=== PATIENT | male | born 1950 | race Caucasian/White ===

== ENCOUNTER 2019-01-28 02:10 | Emergency (ER) | payer OTHER, MEDICARE ==
[2019-01-28] MEDS ORDERED: HYDROmorphone 0.5 MG/0.5 ML Syringe IVPUSH ONE ×2 (02:41→03:13)
[2019-01-28] MEDS ORDERED: Ondansetron 4 MG/2 ML SDV IVPUSH ONE (02:41)
--- NOTE | 2019-01-28 02:41 | EDM.PDOC ---
ED HPI GENERAL MEDICAL PROBLEM - General Chief Complaint: Gastrointestinal Problem Stated Complaint: abdominal pain for 5 days Time Seen by Provider: 01/28/19 02:29 Source of Information: Reports: Patient History Limitations: Reports: No Limitations - History of Present Illness INITIAL COMMENTS - FREE TEXT/NARRATIVE: This is a 68-year-old male. Tonight around 8 PM he started having bloating of his stomach and crampy sharp pain this seems to radiate around his colon in an upside down U-shaped. He had a normal bowel movement about an hour and a half ago. The pain is gotten more intense and he can't burp or defecate or have flatulence at this time. He had a similar episode like this last Wednesday this seemed to last all night and finally eased up in the morning and he slept all day Wednesday. He's been having normal bowel movements and eating normally with no difficulty since that time. He has no history of gallbladder disease. He complains of feeling distended and full. He says it feels like he just can't get anything to move. No fever no chills no cough no congestion no other acute symptoms. He's had no history of bowel surgeries or bowel problems. Abdominal Pain Score (Numeric/FACES): 8 - Related Data Allergies Allergy/AdvReac Type Severity Reaction Status Date / Time No Known Allergies Allergy Verified 01/28/19 02:18 Home Meds: Home Meds Acetaminophen/oxyCODONE [Percocet 325-5 MG] 1 each PO Q4H PRN #10 tab 01/28/19 [ Rx] Aspirin 81 mg PO DAILY 01/28/19 [History] Lisinopril 20 mg PO DAILY 01/28/19 [History] Ondansetron HCl [Zofran] 4 mg PO Q6H PRN #10 tablet 01/28/19 [Rx] atorvaSTATin [Lipitor] 40 mg PO DAILY 01/28/19 [History] Past Medical History HEENT History: Reports: Other (See Below) Other HEENT History: glasses Cardiovascular History: Reports: High Cholesterol, [place] Musculoskeletal History: Reports: Other (See Below) Other Musculoskeletal History: r femure repair Social & Family History - Tobacco Use Smoking Status *Q: Current Every Day Smoker Years of Tobacco use: 40 Packs/Tins Daily: 1 - Caffeine Use Caffeine Use: Reports: Coffee - Recreational Drug Use Recreational Drug Use: No ED ROS GENERAL - Review of Systems Review Of Systems: See Below Constitutional: Denies: Fever, Chills HEENT: Reports: No Symptoms Respiratory: Denies: Shortness of Breath, Cough Cardiovascular: Denies: Chest Pain Endocrine: Reports: No Symptoms GI/Abdominal: Reports: Abdominal Pain, Distension. Denies: Diarrhea, Flatus, Nausea, Vomiting : Reports: No Symptoms Musculoskeletal: Reports: No Symptoms Skin: Reports: No Symptoms Neurological: Reports: No Symptoms Psychiatric: Reports: No Symptoms Hematologic/Lymphatic: Reports: No Symptoms ED EXAM, GI/ABD - Physical Exam Exam: See Below Exam Limited By: No Limitations General Appearance: Alert, WD/WN, Mild Distress Eyes: Bilateral: Normal Appearance Ears: Normal External Exam Nose: Normal Inspection Throat/Mouth: Normal Inspection, Normal Lips, Normal Voice, No Airway Compromise Head: Normocephalic Neck: Supple Respiratory/Chest: No Respiratory Distress, Lungs Clear, Normal Breath Sounds Cardiovascular: Regular Rate, Rhythm, No Murmur GI/Abdominal Exam: Distended. No: Normal Bowel Sounds (Bowel sounds are decreased and occasionally high pitched, he appears to be distended with tenderness all over his abdomen, there is no rebound noted but his abdomen is tense) Back Exam: Normal Inspection, Full Range of Motion Extremities: Normal Inspection, Normal Range of Motion Neurological: Alert, Oriented Psychiatric: Normal Affect, Normal Mood Skin Exam: Warm, Dry Course - Vital Signs Last Recorded V/S: Last Vital Signs Temp 96.8 F 01/28/19 02:17 Pulse 62 01/28/19 02:17 Resp 17 01/28/19 02:17 BP 171/87 H 01/28/19 02:17 Pulse Ox 100 01/28/19 02:17 - Orders/Labs/Meds Orders: Active Orders 24 hr Category Date Time Status Abdomen 2V AP Flat Upright [CR] Stat Exams 01/28/19 02:41 Taken Abdomen Pelvis w Cont [CT] Stat Exams 01/28/19 03:05 Taken Sodium Chloride 0.9% [Normal Saline] 1,000 ml Med 01/28/19 02:45 Active IV ASDIRECTED Medication Orders Sodium Chloride (Normal Saline) 1,000 mls @ 500 mls/hr IV ASDIRECTED ANNE MARIE Last Admin: 01/28/19 05:03 Dose: 999 mls/hr Infusion: 01/28/19 04:55 Dose: 500 mls/hr Admin: 01/28/19 02:55 Dose: 500 mls/hr Labs: Laboratory Tests 01/28/19 01/28/19 Range/Units 02:50 02:50 WBC 10.83 H (4.23-9.07) K/mm3 RBC 5.25 (4.63-6.08) M/mm3 Hgb 15.7 (13.7-17.5) gm/dl Hct 47.0 (40.1-51.0) % MCV 89.5 (79.0-92.2) fl MCH 29.9 (25.7-32.2) pg MCHC 33.4 (32.2-35.5) g/dl RDW Std Deviation 41.1 (35.1-43.9) fL Plt Count 254 (163-337) K/mm3 MPV 9.8 (9.4-12.3) fl Neut % (Auto) 74.7 H (34.0-67.9) % Lymph % (Auto) 14.0 L (21.8-53.1) % [place] % (Auto) 9.6 (5.3-12.2) % Eos % (Auto) 0.9 (0.8-7.0) Baso % (Auto) 0.5 (0.1-1.2) % Neut # (Auto) 8.09 H (1.78-5.38) K/mm3 Lymph # (Auto) 1.52 (1.32-3.57) K/mm3 [place] # (Auto) 1.04 H (0.30-0.82) K/mm3 Eos # (Auto) 0.10 (0.04-0.54) K/mm3 Baso # (Auto) 0.05 (0.01-0.08) K/mm3 Manual Slide Review Abnormal smear Sodium 136 (136-145) mEq/L Potassium 4.7 (3.5-5.1) mEq/L Chloride 104 (98-107) mEq/L Carbon Dioxide 21 (21-32) mEq/L Anion Gap 15.7 H (5-15) BUN 20 H (7-18) mg/dL Creatinine 1.1 (0.7-1.3) mg/dL Est Cr Clr Drug Dosing 60.93 mL/min Estimated GFR (MDRD) > 60 (>60) mL/min BUN/Creatinine Ratio 18.2 H (14-18) Glucose 186 H (80-115) mg/dL Calcium 8.8 (8.5-10.1) mg/dL Total Bilirubin 0.5 (0.2-1.0) mg/dL AST 23 (15-37) U/L ALT 32 (16-63) U/L Alkaline Phosphatase 102 (46-116) U/L Total Protein 7.1 (6.4-8.2) g/dl Albumin 3.6 (3.4-5.0) g/dl Globulin 3.5 gm/dL Albumin/Globulin Ratio 1.0 (1-2) Lipase 1031 H (73-393) U/L Meds: Medications Generic Name Dose Route Start Last Admin Trade Name Freq PRN Reason Stop Dose Admin Sodium Chloride 1,000 mls @ 500 mls/hr 01/28/19 02:45 01/28/19 05:03 Normal Saline IV 999 mls/hr ASDIRECTED ANNE MARIE Administration Discontinued Medications Generic Name Dose Route Start Last Admin Trade Name Freq PRN Reason Stop Dose Admin Hydromorphone HCl 0.5 mg 01/28/19 02:41 01/28/19 02:55 Dilaudid IVPUSH 01/28/19 02:42 0.5 mg ONETIME ONE Administration Hydromorphone HCl 0.5 mg 01/28/19 03:13 01/28/19 03:17 Dilaudid IVPUSH 01/28/19 03:14 0.5 mg ONETIME ONE Administration Iopamidol 100 ml 01/28/19 04:13 01/28/19 04:15 Isovue-300 (61%) IVPUSH 01/28/19 04:14 100 ml ONETIME ONE Administration Ondansetron HCl 4 mg 01/28/19 02:41 01/28/19 02:55 Zofran IVPUSH 01/28/19 02:42 4 mg ONETIME ONE Administration - Radiology Interpretation Free Text/Narrative:: LAD and upright shows a collection of stool and gas in the right lower quadrant but the rest of the large bowel does not appear to have significant stool. I cannot visualize the small bowel. There does not appear to be any significant air-fluid levels. CT scan showed a 1.8 cm stone in the gallbladder with some mildly edematous gallbladder wall but there was no other acute findings. - Re-Assessments/Exams Free Text/Narrative Re-Assessment/Exam: 01/28/19 05:11 The patient is feeling much better right now and he is getting his fluids due to the IV contrast and his mild dehydration. Once he gets his 2 L we will discharge him home. He is to follow-up with the surgeon color control operator on Wednesday by calling the office and arrange an office visit. 01/28/19 05:57 The patient is doing much better. He has no pain and he feels like he can go home. Departure - Departure Time of Disposition: 05:12 Disposition: Home, Self-Care 01 Condition: Fair Clinical Impression: Cholelithiasis without cholecystitis Cholelithiasis without obstruction Qualifiers: Cholelithiasis location: gallbladder Cholecystitis presence: without cholecystitis Qualified Code(s): K80.20 - Calculus of gallbladder without cholecystitis without obstruction - Discharge Information *PRESCRIPTION DRUG MONITORING PROGRAM REVIEWED*: No *COPY OF PRESCRIPTION DRUG MONITORING REPORT IN PATIENT ASHOK: No Prescriptions: Acetaminophen/oxyCODONE [Percocet 325-5 MG] 1 each PO Q4H PRN #10 tab PRN Reason: Pain Ondansetron HCl [Zofran] 4 mg PO Q6H PRN #10 tablet PRN Reason: Nausea Instructions: Cholelithiasis, Gallbladder Eating Plan Referrals: Ezequiel Dove MD [Physician] - Forms: ED Department Discharge Additional Instructions: Avoid all oily, greasy or fried foods, stick to liquids for the next 24 hours, call Dr. Dove on Wednesday and arrange for an office visit for evaluation of your gallbladder and possible removal of your gallbladder, if there is marked worsening of your symptoms return to the ER, if you develop a fever greater than 101.5 return to the ER, take the medication for pain and nausea as needed - My Orders Last 24 Hours: My Active Orders 01/28/19 02:41 Abdomen 2V AP Flat Upright [CR] Stat 01/28/19 02:45 Sodium Chloride 0.9% [Normal Saline] 1,000 ml IV ASDIRECTED 01/28/19 03:05 Abdomen Pelvis w Cont [CT] Stat - Assessment/Plan Last 24 Hours: My Active Orders 01/28/19 02:41 Abdomen 2V AP Flat Upright [CR] Stat 01/28/19 02:45 Sodium Chloride 0.9% [Normal Saline] 1,000 ml IV ASDIRECTED 01/28/19 03:05 Abdomen Pelvis w Cont [CT] Stat
[2019-01-28] MEDS: Sodium Chloride 0.9% 1,000 ML IV SCH ×2 (02:55→05:03)
[2019-01-28] MEDS ORDERED: Iopamidol 612 MG/ML 100 ML Bottle IVPUSH ONE (04:13)
--- NOTE | 2019-01-28 12:52 | CR ---
Abdomen: Supine and upright views of the abdomen were obtained. Comparison: No prior abdominal x-ray. Plate and screws are partially visualized within the femur. Moderate joint space narrowing is seen within the superior right hip joint. Joint space within the left hip is preserved. Bowel gas pattern is normal. No free air is seen. Calcifications are noted within the pelvis which are felt compatible with slight arterial calcification and phleboliths. Impression: 1. Findings which are nonacute as noted above. 2. Two-view abdominal study is otherwise unremarkable. Diagnostic code #2
--- NOTE | 2019-01-28 12:52 | CT ---
CT abdomen and pelvis Technique: Multiple axial sections were obtained from above the dome of the diaphragm inferiorly through the pubic symphysis. Intravenous and oral contrast was utilized. Delayed images were also obtained through the bladder. Comparison: Prior abdominal x-ray performed earlier on the same day (2:49 AM). Findings: Visualized lung bases show nothing acute. Liver contains no focal parenchymal abnormality. Contrast is noted within the distal esophagus compatible with reflux. Spleen appears within normal limits. Adrenal glands show no nodule. Pancreas is within normal limits. Single large calcified gallstone is noted within the gallbladder. This stone measures approximately 1.6 cm in greatest dimension. There is slight gallbladder wall thickening and possible mild edema present. No biliary duct dilatation is seen on this exam. Kidneys show symmetric contrast enhancement. No hydronephrosis or mass is seen within either kidney. Aorta shows no aneurysm. No retroperitoneal adenopathy is seen. Mild atherosclerotic change noted within the aortoiliac vessels. Very slight ectasia is noted within the distal aorta. No mesenteric abnormalities are seen. Appendix is seen which is normal in size. Diverticuli are seen within the sigmoid colon and descending colon without diverticulitis. No free fluid or inflammatory change is seen. Delayed images show contrast within the distal ureters and within the bladder. Bone window settings were reviewed which appear within normal limits for the patient's age. Impression: 1. Single large gallstone within the gallbladder. Slightly abnormal gallbladder wall. Gallbladder ultrasound could be obtained to further evaluate. 2. Gastroesophageal reflux of contrast. 3. Diverticuli without diverticulitis. 4. Other findings which are believed to be incidental. Diagnostic code #3 Agree with preliminary report issued by [employer], preliminary report finalized on 01/28/19, 5:45 AM Central Time
== END 2019-01-28 06:09 | disposition home or self-care (01) ==
LOC: JD.ED 02:10
DX: K80.20 Calculus of gallbladder without cholecystitis without obstruction (principal); I25.2 Old myocardial infarction; E78.00 Pure hypercholesterolemia, unspecified; F17.210 Nicotine dependence, cigarettes, uncomplicated; Z79.82 Long term (current) use of aspirin; Z79.899 Other long term (current) drug therapy
CPT/HCPCS: 36415; 74019; 74177; 80053; 83690; 85025; 96361; 96374; 96375; 99284; J1170; J2405; J7040; Q9967

== ENCOUNTER 2019-02-06 08:38 | Day surgery (SDC) | payer OTHER, MEDICARE ==
[~2019-02-06 08:38] MED LIST: Lactated Ringers 1,000 ML IV SCH; Lidocaine 1%/Sod Bicarbonate in NS 8.4% 1 ML Syringe IDERM PRN; Sodium Chloride 0.9% 10 ML Syringe FLUSH PRN
[2019-02-06] MEDS ORDERED: Iopamidol 612 MG/ML 50 ML SDV ONE (08:56)
[2019-02-06] MEDS ORDERED: Lidocaine 1% 30 ML SDV ONE (08:57)
[2019-02-06] MEDS ORDERED: Sodium Chloride 0.9% 50 ML SDV ONE (08:57)
[2019-02-06] MEDS ORDERED: ceFAZolin 2 GM in Premix Bag 1 BAG IV ONE (09:20)
--- NOTE | 2019-02-06 09:32 | PCM.PREANE ---
Preanesthetic Assessment - Anesthesia/Transfusion/Family Hx Anesthesia History: Prior Anesthesia Without Reaction Family History of Anesthesia Reaction: No - Review of Systems General: No Symptoms Pulmonary: No Symptoms (Vapes nicotine free up to 10 times per day. ) Cardiovascular: No Symptoms (History of cardiac stents x2 last one in 2015. Follows with [facility] last saw in October. EKG and ECHO completed and reviewed. ) Gastrointestinal: No Symptoms Neurological: No Symptoms Other: Reports: Neck Pain (Sore neck full ROM. "Chiropractor adjusted and now it 's sore".) - Physical Assessment NPO Status Date: 02/05/19 NPO Status Time: 23:00 Vital Signs: 97.4 F 16 62 118/84 95% ASA Class: 2 Mental Status: Alert & Oriented x3 Airway Class: Mallampati = 1 Dentition: Reports: Partial (Upper x 2 and Lower x 1. Removed. ) Thyro-Mental Finger Breadths: 2 Mouth Opening Finger Breadths: 3 ROM/Head Extension: Full Lungs: Clear to Auscultation, Normal Respiratory Effort Cardiovascular: Regular Rhythm, Bradycardia - Allergies Allergies/Adverse Reactions: Allergies Allergy/AdvReac Type Severity Reaction Status Date / Time No Known Allergies Allergy Verified 02/03/19 11:50 - Anesthesia Plan Beta Tya: Carvedilol Med Last Dose Date: 02/06/19 Med Last Dose Time: 08:00 - Acknowledgements Anesthesia Type Planned: General Anesthesia Pt an Appropriate Candidate for the Planned Anesthesia: Yes Alternatives and Risks of Anesthesia Discussed w Pt/Guardian: Yes Pt/Guardian Understands and Agrees with Anesthesia Plan: Yes PreAnesthesia Questionnaire HEENT History: Reports: Other (See Below) Other HEENT History: glasses, partials, hearing aide Cardiovascular History: Reports: CAD, High Cholesterol, [place], Stents Respiratory History: Reports: None Gastrointestinal History: Reports: None Genitourinary History: Reports: None 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 Musculoskeletal History: Reports: Other (See Below) Other Musculoskeletal History: r femure repair Neurological History: Reports: None Psychiatric History: Reports: None Endocrine/Metabolic History: Reports: None Hematologic History: Reports: None Immunologic History: Reports: None Oncologic (Cancer) History: Reports: None Dermatologic History: Reports: None - Past Surgical History Head Surgeries/Procedures: Reports: None HEENT Surgical History: Reports: Naso-Sinus Surgery Cardiovascular Surgical History: Reports: None Respiratory Surgical History: Reports: None GI Surgical History: Reports: None Female Surgical History: Reports: None Male Surgical History: Reports: None Endocrine Surgical History: Reports: None Neurological Surgical History: Reports: None Musculoskeletal Surgical History: Reports: Other (See Below) Other Musculoskeletal Surgeries/Procedures:: right femur fracture with surgery Oncologic Surgical History: Reports: None Dermatological Surgical History: Reports: None - SUBSTANCE USE Smoking Status *Q: Former Smoker Recreational Drug Use History: No - HOME MEDS Home Medications: Home Meds Acetaminophen/oxyCODONE [Percocet 325-5 MG] 1 each PO Q4H PRN #10 tab 01/28/19 [ Rx] Aspirin 81 mg PO DAILY 01/28/19 [History] Ondansetron HCl [Zofran] 4 mg PO Q6H PRN #10 tablet 01/28/19 [Rx] atorvaSTATin [Lipitor] 40 mg PO DAILY 01/28/19 [History] Carvedilol [Coreg] 3.125 mg PO BID 02/03/19 [History] Lisinopril 5 mg PO DAILY 02/03/19 [History] - CURRENT (IN HOUSE) MEDS Current Meds: Current Medications Lactated Ringer's (Ringers, Lactated) 1,000 mls @ 125 mls/hr IV ASDIRECTED ANNE MARIE Stop: 02/06/19 23:00 Cefazolin Sodium/Dextrose 2 gm (/ Premix) 50 mls @ 100 mls/hr IV ONETIME ONE Stop: 02/06/19 09:49 Lidocaine/Sodium Bicarbonate (Buffered Lidocaine 1% In Ns 8.4%) 0.25 ml IDERM ONETIME PRN PRN Reason: Prior to IV Start Stop: 02/06/19 18:00 Sodium Chloride (Saline Flush) 10 ml FLUSH ASDIRECTED PRN PRN Reason: Keep Vein Open Stop: 02/06/19 18:00 Discontinued Medications Iopamidol (Isovue-300 (61%)) Confirm Administered Dose 50 ml .ROUTE .STK-MED ONE Stop: 02/06/19 08:57 Lidocaine HCl (Xylocaine-Mpf 1%) Confirm Administered Dose 30 ml .ROUTE .STK- MED ONE Stop: 02/06/19 08:58 Sodium Chloride (Normal Saline) Confirm Administered Dose 100 ml .ROUTE .STK- MED ONE Stop: 02/06/19 08:58
[2019-02-06] MEDS ORDERED: Rocuronium 50 MG/5 ML Vial ONE (09:34)
[2019-02-06] MEDS ORDERED: Propofol 200 MG/20 ML SDV ONE (09:35)
[2019-02-06] MEDS ORDERED: Midazolam 1 MG/ML 2 ML SDV ONE (09:35)
[2019-02-06] MEDS ORDERED: fentaNYL 250 MCG/5 ML SDV ONE (09:36)
[2019-02-06] MEDS ORDERED: Succinylcholine/Normal Saline 100 MG/5 ML Syringe ONE (09:38)
[2019-02-06] MEDS ORDERED: ceFAZolin 1 GM Vial ONE (09:38)
[2019-02-06] MEDS ORDERED: Phenylephrine/Normal Saline 100 MCG/ML 10 ML Syringe ONE (10:17)
[2019-02-06] MEDS ORDERED: Ondansetron 4 MG/2 ML SDV ONE (10:17)
[2019-02-06] MEDS ORDERED: HYDROmorphone 0.5 MG/0.5 ML Syringe IVPUSH PRN (10:24)
[2019-02-06] MEDS ORDERED: Lactated Ringers 1,000 ML ONE (10:56)
[2019-02-06] MEDS ORDERED: fentaNYL 100 MCG/2 ML SDV IVPUSH PRN (12:00)
--- NOTE | 2019-02-06 12:07 | CR ---
Operative cholangiogram: Multiple fluoroscopic spot views were obtained during operative cholangiogram exam. Findings: There is opacification of the CHD and CBD as well as proximal intrahepatic ducts. Contrast is noted within the duodenum. No filling defects are seen to indicate retained stone. Impression: 1. No abnormality is seen on operative cholangiogram exam. Diagnostic code #1
[2019-02-06] MEDS ORDERED: Ketorolac 15 MG/ML SDV ONE (12:08)
[2019-02-06] MEDS ORDERED: Neostigmine Methylsulfate 1 MG/ML 5 ML Syringe ONE (12:20)
--- NOTE | 2019-02-06 12:36 | PCM.POSTAN ---
POST ANESTHESIA ASSESSMENT - MENTAL STATUS Mental Status: Alert, Oriented - VITAL SIGNS Vital Signs: Last Vital Signs Temp 97.3 F 02/06/19 08:45 Pulse 62 02/06/19 08:45 Resp 16 02/06/19 08:45 BP 118/84 02/06/19 08:45 Pulse Ox 95 02/06/19 08:45 1224 130/69, 84, 15, 96% , 97.6 F - RESPIRATORY Respiratory Status: Respiratory Rate WNL, Airway Patent, O2 Saturation Stable, Supplemental Oxygen - CARDIOVASCULAR CV Status: Pulse Rate WNL, Blood Pressure Stable - GASTROINTESTINAL GI Status: No Symptoms - PAIN Pain Score: 0 - POST OP HYDRATION Hydration Status: Adequate & Stable
[2019-02-06] MEDS ORDERED: Acetaminophen/HYDROcodone 325-5 MG Tab PO ONE (13:10)
--- NOTE | 2019-02-06 14:11 | OR ---
DATE OF OPERATION: 02/06/2019 SURGEON: Ezequiel Dove MD PREOPERATIVE DIAGNOSIS: 1. Biliary colic. 2. Gallstone pancreatitis. POSTOPERATIVE DIAGNOSIS: 1. Acute on chronic cholecystitis. 2. Cholelithiasis. 3. Normal intraoperative cholangiogram. OPERATION PERFORMED: 1. Laparoscopic cholecystectomy. 2. Intraoperative cholangiogram. 3. Interpretation of intraoperative cholangiogram images. ANESTHESIA: General endotracheal. ESTIMATED BLOOD LOSS: 10 mL. FLUIDS: 1500 mL. FINDINGS: Normal cholangiogram and thickened gallbladder with acute and chronic inflammation. COMPLICATIONS: None. INDICATIONS AND CONSENT: Mr. Benson is a 68-year-old male with past CO and stents, most recently in 2016. The patient started having right upper quadrant pain about 2-3 weeks ago. The pain was located in the right side causing some bloating and some nausea, but no vomiting. The patient was evaluated in the emergency department after another acute episode and found to have thickened gallbladder with stones. At that time, his lipase was also 1000. The patient was discharged home and followed up in my clinic. I talked to the patient, evaluated him, and diagnosed him with biliary colic with gallstone pancreatitis. I recommended we proceed with laparoscopic cholecystectomy with intraoperative cholangiogram given the episode of pancreatitis. The patient agreed to proceed with the procedure. We discussed the risks, benefits, and alternatives. Risks discussed include, but not limited to, injury to the wrist, biliary tree, biliary leak, infection, wound complications, injury to the rest of the abdominal structures including liver and bowel, and need for further interventions. The patient understood and agreed to proceed with the procedure. DESCRIPTION OF PROCEDURE: The patient was taken to the operating room, placed on the operating room table in a supine position. Following induction of general endotracheal anesthesia, preop antibiotics were provided, SCDs were placed, and the abdomen was clipped of any hair and prepped and draped in the usual sterile fashion. We began by making an infraumbilical incision. Fascia was exposed and elevated with Shanthi clamps. Incision was made, and the abdomen was accessed with a cutdown method. A Kevin trocar was placed. The abdomen was surveyed and found to be without any other abnormalities. Three additional 5 mm trocars were placed, 1 in the subxiphoid region and 2 in the right subcostal region. The gallbladder was grasped and elevated above the liver. The gallbladder appeared to be very thickened. There was a large stone in the gallbladder neck. There was quite a bit of inflammation in the gallbladder neck. Therefore, dissection was done sharply with [place] using judicious use of cautery and suction investor. The infundibulum was dissected out. The cystic artery was identified and clipped and cut, and then cystic duct was also identified and skeletonized as well as the posterior liver edge creating a critical window of safety. Once this was done, we proceeded with intraoperative cholangiogram and a clip was placed in the proximal cystic duct. A cystic ductotomy was made. A cholangiocatheter was passed through this and secured with another clip. Dye was injected under fluoroscopy, and the common bile duct appeared to be patent with prompt contrast passage into the duodenum. Retrograde contrast passing into the left and right branches of the hepatic duct was also visualized. There was no concern for obstructing stone. When this was done, the cholangiocatheter was removed. Two additional clips were placed in the distal cystic duct and the cystic duct was transected, and the gallbladder was removed from the gallbladder fossa with cautery. There was minor oozing that was stopped with cautery as well. The gallbladder was removed, was placed in the EndoCatch bag and removed, and taken out for pathology review. We re-examined the gallbladder fossa, irrigated the area with 1 L of normal saline, and suctioned out. There was no bleeding in the area. The dissection bed was completely hemostatic. Then, at this time, we removed all the trocars. The fascia at the umbilical site was closed with 0 Vicryl stitches and skin at all incision sites were closed with 4-0 Monocryl stitches, and Dermabond was applied over the top. This marked the end of the procedure. The patient tolerated the procedure well and at the end of the procedure, all instruments, sharps, and sponges were counted and found to be correct x2. The patient was awoken from general anesthesia and taken to the PACU for further recovery. The plan is for the patient to return home today if continued to recover well. The patient will be given some opioid pain medication and Colace as a stool softener. The patient to come back to see me in clinic in 2 weeks for postop check. MMODAL /[id number] [facility]
--- NOTE | 2019-02-06 15:24 | PCM48HPAN ---
Post Anesthesia Note - EVALUATION WITHIN 48HRS OF ANESTHETIC Vital Signs in Normal Range: Yes Patient Participated in Evaluation: Yes Respiratory Function Stable: Yes Airway Patent: Yes Cardiovascular Function Stable: Yes Hydration Status Stable: Yes Pain Control Satisfactory: Yes Nausea and Vomiting Control Satisfactory: Yes Mental Status Recovered: Yes Vital Signs: Last Vital Signs Temp 97.2 F 02/06/19 14:30 Pulse 59 L 02/06/19 14:30 Resp 14 02/06/19 14:30 BP 120/77 02/06/19 14:30 Pulse Ox 96 02/06/19 14:30
== END 2019-02-06 15:23 | disposition home or self-care (01) ==
LOC: JD.SDS 08:38
PROVIDERS: ATTEND Surgery
DX: K80.12 Calculus of gallbladder with acute and chronic cholecystitis without obstruction (principal); I25.10 Atherosclerotic heart disease of native coronary artery without angina pectoris; I25.2 Old myocardial infarction; I10 Essential (primary) hypertension; E78.5 Hyperlipidemia, unspecified; Z95.5 Presence of coronary angioplasty implant and graft; Z87.891 Personal history of nicotine dependence; Z79.82 Long term (current) use of aspirin; Z79.899 Other long term (current) drug therapy
CPT/HCPCS: 00790; 74300; 74300-26; A9270-GY; J0330; J0690; J1885; J2001; J2250; J2370; J2405; J2704; J2710; J3010; J7120; Q9967